=== PATIENT | male | born 1980 | race Caucasian/White ===

== ENCOUNTER 2020-03-02 09:58 | Day surgery (SDC) | payer BC ==
[~2020-03-02] VITALS: Ht 170.2 cm; Wt 82.7 kg
--- NOTE | ~2020-03-02 | OP ---
PATIENT NAME: DARCY COBURN MEDICAL RECORD: [id number] :80 LOCATION:[facility] ADMISSION DATE: SURGEON: JYOTI RUBIO MD DATE OF OPERATION: 03/02/2020 PROCEDURE: Colonoscopy with hot biopsy polypectomy. Colonoscopy with injection of Sherrell ink for tattooing purposes for further identification. HISTORY AND PHYSICAL: Mr. Coburn is a very pleasant 39-year-old gentleman with a history of Crohn's disease diagnosed in 2006. He has never required any surgeries. The patient is on Cimzia. His last colonoscopy was June 23, 2019. This procedure was significant for a 1.5 cm polyp noted in the transverse colon also at 70 cm for identification. This polyp was removed with hot biopsy forcep technique and the pathology was significant for a serrated polyp favoring hyperplastic polyp with prolapse features. The patient is returning today for a repeat colonoscopy to examine this same site. He tells me that his Crohn's disease is very well controlled on Cimzia 400 mg - 2 mL which is injected under the skin once a month. FINDINGS: Informed consent was given. The patient received 300 mg of propofol for this procedure, O2 4 liters. After reaching an adequate level of sedation by slow IV push, the patient was placed on his left side. The rectal exam revealed good sphincter tone. No fissures or fistulas were appreciated. No external skin tags were seen. The colonoscope was advanced without difficulty to the cecum where the ileocecal valve and appendiceal orifice were identified. The patient's prep was felt to be very good. On withdrawal of the scope, mucosa was carefully inspected. The small bowel was intubated for surveillance reasons, tissue did appear to be fairly normal, but a biopsy was taken to be thorough. We also took a biopsy of the ileocecal valve for the same reason. The patient's Crohn's disease is very well controlled. On withdrawal of the scope, mucosa was carefully inspected and at 70 cm within the transverse colon, a scar was encountered, which was the site of the previous polypectomy. The patient had 2 very small areas of what is felt to be regrowth and these areas were treated with hot biopsy forcep technique. We then tattooed the area for further identification in the future. The scope was withdrawn and within the rectum, the patient had extremely mild inflammation present, which was scattered and minimal; biopsy was obtained. On retroflexion and final withdrawal of the scope, minimal internal hemorrhoids were appreciated. The scope was then completely withdrawn. IMPRESSION: 1. The patient with Crohn's disease since 2006, well controlled with Cimzia 400 mg under the skin injection once a month. 2. Normal ileocecal valve and small bowel; however, biopsies separately obtained to be thorough. 3. Very slight regrowth of the previously documented serrated polyp at 70 cm within the colon in the transverse colon. This regrowth was removed with hot biopsy forcep technique and then a tattoo was placed for further identification in the future. OPERATIVE REPORT [id number] DARCY COBURN 4. Normal colon throughout until reaching the rectum where a slight amount of inflammation was appreciated and a biopsy was obtained. 5. Very minimal internal hemorrhoids. PLAN: 1. Continue Cimzia 400 mg - 2 mL (200 mg per mL times 2) injected under the skin once a month. 2. No anti-inflammatory drugs for 14 days, then we would recommend not using these medications at all. 3. Resume regular diet. 4. We will call the patient with the results of his path report. 5. Next colonoscopy in 1 year or earlier depending on the path report. TRANSINT:[id number] Voice Confirmation ID: [id number] DOCUMENT ID: [id number] JYOTI RUBIO MD CC: DYAN REDDY MD [id number] DICTATION DATE: 03/02/20 1256 [employer] INSTRUCTOR: 03/02/20 1846 [facility] 03/02/20 [facility] [address] [place] [address]
[~2020-03-02 09:58] MED LIST: IMURAN50 MG PO
[2020-03-02 10:50] VITALS: BP 154/91; Ht 170.2 cm; Wt 82.7 kg
[2020-03-02] MEDS ORDERED: CIMZIA400 MG/2 M SQ (10:50)
--- NOTE | 2020-03-02 13:48 | NUR ---
PRESCRIPTION FOR CIMZIA CALLED INTO [facility] IN [place], SPOKE WITH XOCHILT
[2020-03-02 14:02] LABS: ALBUMIN 4.4 g/dL (3.4-5.0); BILIRUBIN - DIRECT 0.09 mg/dL (0.00-0.30); BILIRUBIN - INDIRECT 0.41 mg/dL (0.00-1.00); BILIRUBIN - TOTAL 0.5 mg/dL (0.2-1.3); PROTEIN - SERUM 8.7 g/dL (6.4-8.2)
[2020-03-02 14:05] LABS: BASOPHILS 0.3 % (0-2); EOSINOPHILS 0.4 % (0-7); HEMATOCRIT 42.2 % (42.0-54.0); HEMOGLOBIN 13.8 g/dL (13.5-17.5); IMMATURE GRANULOCYTES 0.1 % (0-5); LYMPHOCYTES 28.7 % (15-50); MCH 31.1 pg (26.0-34.0); MCHC 32.7 g/dL (31.0-37.0); MEAN PLATELET VOLUME 9.6 fL (7.4-10.4); MONOCYTES 4.8 % (2-11); NEUTROPHILS 65.7 % (40-80); PLATELET COUNT 270 10x3/uL (130-400); RBC 4.44 10x6/uL (4.20-6.10); RDW 12.6 % (11.5-14.5); WBC 7.5 10x3/uL (4.8-10.8)
== END 2020-03-02 13:35 | disposition home or self-care (01) ==
LOC: D.OPS 09:58
PROVIDERS: ATTEND Internal Medicine Gastroenterology
DX: K63.5 Polyp of colon (principal); Z86.010 Personal history of colon polyps; K50.90 Crohn's disease, unspecified, without complications